=== PATIENT | female | born 1970 | race Two or more races ===

== ENCOUNTER 2018-01-10 21:55 | Emergency (ER) | payer MEDICAID ==
[~2018-01-10] VITALS: Ht 160 cm; Wt 77.1 kg
--- NOTE | 2018-01-10 22:10 | NUR ---
TO BED 9 AMBULATORY C/O L FLANK PAIN RADIATING TO LUQ X2 DAYS. PT AAOX4 NO ACUTE DISTRESS NOTED, RESP EVEN AND UNLABORED. PENDING ER MD LAWLER.
[2018-01-10] MEDS ORDERED: IV NS 0.9% 1,000 ML BAG IV ONE (22:30)
[2018-01-10] MEDS ORDERED: MORPHINE SULFATE INJ 2 MG/ML DISP.SYRIN IV ONE (22:30)
[2018-01-10] MEDS ORDERED: ONDANSETRON HCL/PF 4 MG/2 ML VIAL IVP ONE (22:30)
[2018-01-10] MEDS ORDERED: MORPHINE SULFATE INJ 4 MG/ML DISP.SYRIN ONE (22:32)
[2018-01-10] MEDS ORDERED: ONDANSETRON HCL/PF 4 MG/2 ML VIAL ONE (22:32)
[2018-01-10 22:46] LABS: BASOPHILS % (AUTO) 0.8 % (0.0-2.0); EOSINOPHILS % (AUTO) 4.1 % (0.0-6.0); HEMATOCRIT 38 % (33-45); HEMOGLOBIN 12.3 g/dL (11.5-14.8); LYMPHOCYTES # (AUTO) 1.9 /CMM (0.8-4.8); LYMPHOCYTES % (AUTO) 30.7 % (20.0-44.0); MEAN CORPUSCULAR HGB CONC 33 g/dl (31.0-36.0); MEAN CORPUSCULAR VOLUME 84 fL (82-100); MONOCYTES # (AUTO) 0.6 /CMM (0.1-1.30); MONOCYTES % (AUTO) 9.8 % (2.0-12.0); NEUTROPHILS # (AUTO) 3.4 /CMM (1.8-8.9); NEUTROPHILS % (AUTO) 54.6 % (43.0-81.0); PLATELET COUNT (AUTO) 288 /CMM (150-450); RDW COEFFICIENT OF VARIATION 15.8 (11.5-15.0); RED BLOOD CELL COUNT(AUTO) 4.52 MIL/uL (4.0-5.2); WHITE BLOOD COUNT (AUTO) 6.3 K/uL (4.3-11.0)
--- NOTE | 2018-01-10 22:46 | NUR ---
KEERTHI AT [facility] TO MEDICATE PT.
[2018-01-10 23:04] LABS: APPEARANCE,URINE SL CLOUDY (CLEAR); BILIRUBIN,URINE NEGATIVE (NEGATIVE); BLOOD, URINE NEGATIVE Ery/uL (NEGATIVE); COLOR,URINE YELLOW (YELLOW); KETONES,URINE TRACE (NEGATIVE); LEUKOCYTE ESTERASE ,URINE NEGATIVE (NEGATIVE); NITRITE, URINE NEGATIVE (NEGATIVE); PH,URINE 5.5 (5.0-8.0); PROTEIN,URINE NEGATIVE (NEGATIVE); UGLUCOSE NEGATIVE (NEGATIVE); UROBILINOGEN,URINE 0.2 EU/dL (0.2)
[2018-01-10 23:06] LABS: CALCIUM, SERUM 8.8 mg/dL (8.5-10.1); CREATININE 0.7 mg/dL (0.6-1.3); POTASSIUM 3.8 mmol/L (3.5-5.1)
[2018-01-10 23:07] LABS: ALBUMIN 3.7 g/dL (3.4-5.0); BILIRUBIN,DIRECT 0.1 mg/dL (0.0-0.2); BILIRUBIN,TOTAL 0.3 mg/dL (0.2-1.0); TOTAL PROTEIN, SERUM 7.6 g/dL (6.4-8.2)
[2018-01-10 23:13] LABS: BACTERIA,URINE Moderate /HPF (None Seen); MUCUS,URINE Many /LPF (None Seen); RBC,URINE 0-2 /HPF (0-2); SQUAMOUS EPITHELIAL CELL,UR Moderate /HPF (None Seen)
[2018-01-11] MEDS ORDERED: CT SWABBABLE VALVE TRANS SET 1 EA INFUS.SET MC ONE (00:05)
[2018-01-11] MEDS ORDERED: IV NS 0.9% 500 ML IV ONE (00:05)
[2018-01-11] MEDS ORDERED: IOHEXOL-350 100 ML VIAL IV ONE (00:05)
--- NOTE | 2018-01-11 00:47 | NUR ---
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
--- NOTE | 2018-01-11 01:24 | NUR ---
IV removed. Catheter intact and site benign. Pressure and 4x4 applied to site. No bleeding noted.Patient discharged to home in stable condition. Written and verbal after care instructions given. Patient verbalizes understanding of instruction AND RX. PT AMBULATED OUT WITH A STEADY GAIT. VSS. NAD NOTED.
[2018-01-11 01:26] VITALS: BP 117/78
== END 2018-01-11 01:27 | disposition home or self-care (01) ==
LOC: ER 21:55
DX: R10.12 Left upper quadrant pain (principal); M79.1 Myalgia; Z98.890 Other specified postprocedural states
CPT/HCPCS: 36415; 71275; 74176; 80048; 80076; 81001; 85025; 85378; 87086; 93005; 96361; 96374; 96375; 99285; A4606; J2270; J2405; J7030; J7040; Q9967; Z7610; 81000-TC

== ENCOUNTER 2018-03-31 02:15 | Emergency (ER) | payer MEDICAID ==
[~2018-03-31] VITALS: Ht 165.1 cm; Wt 72.6 kg
--- NOTE | 2018-03-31 02:15 | NUR ---
"HEADACHE/RT SIDE NECK PAIN/LT ARM NUMBNESS X2 HOURS"; DENIES TAKING MEDS. VSS NO ACUTE DISTRESS AT THIS TIME. FAMILY AT BEDSIDE TO TRANSLATE. PT IS ALERT AND ORIENTED X3 ACCORDING TO TRANSLATION. WILL CONTINUE TO MONITOR FOR ANY CHANGES DURING THE SHIFT.
--- NOTE | 2018-03-31 02:16 | NUR ---
ER MD ARAIZA AT BEDSIDE
[2018-03-31] MEDS ORDERED: ONDANSETRON 4 MG TAB.RAPDIS SL ONE (03:30)
[2018-03-31] MEDS ORDERED: oxyCODONE/APAP (5/325 MG) 1 UDTAB TABLET PO ONE (03:30)
[2018-03-31] MEDS ORDERED: oxyCODONE/APAP (5/325 MG) 1 UDTAB TABLET ONE (03:33)
[2018-03-31] MEDS ORDERED: ONDANSETRON 4 MG TAB.RAPDIS ONE (03:34)
[2018-03-31 03:47] LABS: BASOPHILS % (AUTO) 0.8 % (0.0-2.0); EOSINOPHILS % (AUTO) 4.5 % (0.0-6.0); HEMATOCRIT 39 % (33-45); HEMOGLOBIN 12.4 g/dL (11.5-14.8); LYMPHOCYTES # (AUTO) 2.2 /CMM (0.8-4.8); LYMPHOCYTES % (AUTO) 38.2 % (20.0-44.0); MEAN CORPUSCULAR HEMOGLOBIN 27 PG (26.0-33.0); MEAN CORPUSCULAR HGB CONC 32 g/dl (31.0-36.0); MEAN CORPUSCULAR VOLUME 84 fL (82-100); MONOCYTES # (AUTO) 0.5 /CMM (0.1-1.30); MONOCYTES % (AUTO) 9.3 % (2.0-12.0); NEUTROPHILS # (AUTO) 2.7 /CMM (1.8-8.9); NEUTROPHILS % (AUTO) 47.2 % (43.0-81.0); PLATELET COUNT (AUTO) 287 /CMM (150-450); RED BLOOD CELL COUNT(AUTO) 4.62 MIL/uL (4.0-5.2); WHITE BLOOD COUNT (AUTO) 5.8 K/uL (4.3-11.0)
[2018-03-31 04:00] LABS: ALANINE AMINOTRANSFERASE 22 U/L (12-78); ALBUMIN 3.8 g/dL (3.4-5.0); ALKALINE PHOSPHATASE 47 U/L (46-116); ASPARTATE AMINOTRANSFERASE 20 U/L (15-37); BILIRUBIN,DIRECT 0.1 mg/dL (0.0-0.2); BILIRUBIN,TOTAL 0.4 mg/dL (0.2-1.0); CALCIUM, SERUM 8.2 mg/dL (8.5-10.1); CARBON DIOXIDE 31 mmol/L (21-32); CHLORIDE 104 mmol/L (98-107); CREATININE 0.6 mg/dL (0.6-1.3); GLUCOSE 104 mg/dL (74-106); SODIUM SERUM 141 mmol/L (136-145); TOTAL PROTEIN, SERUM 7.5 g/dL (6.4-8.2); UREA NITROGEN, BLOOD 7 mg/dL (7-18)
[2018-03-31 04:02] LABS: TROPONIN I < 0.017 ng/mL (0.00-0.056)
--- NOTE | 2018-03-31 04:03 | NUR ---
PT OFF TO CT/RADIOLOGY
--- NOTE | 2018-03-31 04:15 | NUR ---
PT BACK FROM CT
[2018-03-31] MEDS ORDERED: ASPIRIN 81 MG TAB.CHEW ONE (05:22)
[2018-03-31] MEDS ORDERED: ASPIRIN 81 MG TAB.CHEW PO ONE (05:30)
--- NOTE | 2018-03-31 05:43 | NUR ---
PATIENT HAS LEFT SIGNING AMA AFTER SPEAKING WITH MD ARAIZA AND REFUSING TO STAY. RISKS WERE EXPLAINED AND UNDERSTOOD.
[2018-03-31 05:44] VITALS: BP 134/78
== END 2018-03-31 05:44 | disposition left against medical advice (07) ==
LOC: ER 02:20
DX: G45.9 Transient cerebral ischemic attack, unspecified (principal); R51 Headache; M54.2 Cervicalgia; Z98.890 Other specified postprocedural states
CPT/HCPCS: 36415; 70450; 71045; 72125; 80048; 80076; 84484; 85025; 85730; 93005; 99285; A4606; Q0162; Z7610

== ENCOUNTER 2019-11-24 10:44 | Emergency (ER) | payer OTHER ==
[~2019-11-24] VITALS: Ht 167.6 cm; Wt 68.0 kg
--- NOTE | 2019-11-24 11:03 | NUR ---
DR CHACKO AT BEDSIDE FOR EVAL.
--- NOTE | 2019-11-24 11:16 | NUR ---
IV LINE STARTED BLOOD DRAWN AND SENT TO LAB.
[2019-11-24 11:23] LABS: BASOPHILS % (AUTO) 0.8 % (0.0-2.0); EOSINOPHILS % (AUTO) 4.3 % (0.0-6.0); HEMATOCRIT 34 % (33-45); HEMOGLOBIN 11.4 g/dL (11.5-14.8); LYMPHOCYTES # (AUTO) 1.7 /CMM (0.8-4.8); LYMPHOCYTES % (AUTO) 26.9 % (20.0-44.0); MEAN CORPUSCULAR HGB CONC 34 g/dl (31.0-36.0); MEAN CORPUSCULAR VOLUME 79 fL (82-100); MONOCYTES # (AUTO) 0.5 /CMM (0.1-1.30); MONOCYTES % (AUTO) 8.6 % (2.0-12.0); NEUTROPHILS # (AUTO) 3.7 /CMM (1.8-8.9); NEUTROPHILS % (AUTO) 59.4 % (43.0-81.0); PLATELET COUNT (AUTO) 230 /CMM (150-450); RED BLOOD CELL COUNT(AUTO) 4.29 MIL/uL (4.0-5.2); WHITE BLOOD COUNT (AUTO) 6.2 K/uL (4.3-11.0)
[2019-11-24 11:30] LABS: CALCIUM, SERUM 8.6 mg/dL (8.5-10.1); CARBON DIOXIDE 23 mmol/L (21-32); CHLORIDE 105 mmol/L (98-107); CREATININE 0.7 mg/dL (0.6-1.3); GLUCOSE 98 mg/dL (74-106); POTASSIUM 3.8 mmol/L (3.5-5.1); SODIUM SERUM 139 mmol/L (136-145); UREA NITROGEN, BLOOD 11 mg/dL (7-18)
[2019-11-24 11:44] LABS: ALANINE AMINOTRANSFERASE 23 U/L (12-78); ALBUMIN 3.6 g/dL (3.4-5.0); ALKALINE PHOSPHATASE 45 U/L (46-116); ASPARTATE AMINOTRANSFERASE 21 U/L (15-37); BILIRUBIN,DIRECT 0.1 mg/dL (0.0-0.2); BILIRUBIN,TOTAL 0.3 mg/dL (0.2-1.0); TOTAL PROTEIN, SERUM 7.2 g/dL (6.4-8.2)
[2019-11-24] MEDS ORDERED: IOHEXOL-350 100 ML VIAL IV ONE (12:35)
[2019-11-24] MEDS ORDERED: CT SWABBABLE VALVE TRANS SET 1 EA INFUS.SET MC ONE (12:35)
[2019-11-24] MEDS ORDERED: IV NS 0.9% 500 ML IV ONE (12:35)
[2019-11-24 13:52] VITALS: BP 112/74
--- NOTE | 2019-11-24 13:52 | NUR ---
Patient discharged to home in stable condition. Written and verbal after care instructions given. Patient verbalizes understanding of instruction.IV removed. Catheter intact and site benign. Pressure and 4x4 applied to site. No bleeding noted.
== END 2019-11-24 13:53 | disposition home or self-care (01) ==
LOC: ER 10:51
DX: R07.89 Other chest pain (principal); Z98.890 Other specified postprocedural states
CPT/HCPCS: 36415; 71045; 71275; 80048; 80076; 84484; 84703; 85025; 93005; 99285; J7040; Q9967

== ENCOUNTER 2020-03-17 21:08 | Emergency (ER) | payer OTHER ==
[~2020-03-17] VITALS: Ht 165.1 cm; Wt 54.4 kg
[2020-03-17 21:57] VITALS: BP 115/70
[2020-03-17] MEDS ORDERED: FLUORESCEIN SODIUM OPHTH 1 EA STRIP ONE (22:13)
--- NOTE | 2020-03-17 22:14 | NUR ---
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
[2020-03-17] MEDS ORDERED: FLUORESCEIN SODIUM OPHTH 1 EA STRIP OP ONE (22:30)
[2020-03-17] MEDS ORDERED: TETRACAINE HCL 0.5% OPHTALMIC 15 ML BOTTLE OP ONE (22:30)
== END 2020-03-17 22:32 | disposition home or self-care (01) ==
LOC: ER 21:09
DX: H10.9 Unspecified conjunctivitis (principal); Z98.890 Other specified postprocedural states

== ENCOUNTER 2021-01-28 10:44 | Emergency (ER) | payer OTHER ==
[~2021-01-28] VITALS: Ht 167.6 cm; Wt 73.9 kg
[2021-01-28] MEDS ORDERED: PROCHLORPERAZINE EDISYLATE 10 MG/2 ML VIAL IM/IV STA (11:06)
[2021-01-28] MEDS ORDERED: KETOROLAC TROMETHAMINE 15 MG/ML VIAL ONE (11:17)
[2021-01-28] MEDS ORDERED: diphenhydrAMINE HCL 50 MG/ML VIAL ONE (11:17)
[2021-01-28] MEDS ORDERED: ACETAMINOPHEN 325 MG TABLET ONE (11:17)
[2021-01-28] MEDS ORDERED: PROCHLORPERAZINE EDISYLATE 10 MG/2 ML VIAL ONE (11:17)
[2021-01-28] MEDS ORDERED: ACETAMINOPHEN 325 MG TABLET PO ONE (11:30)
[2021-01-28] MEDS ORDERED: IV NS 0.9% 1,000 ML BAG IV ONE (11:30)
[2021-01-28] MEDS ORDERED: KETOROLAC TROMETHAMINE INJ 30 MG/ML VIAL IV ONE (11:30)
[2021-01-28] MEDS: diphenhydrAMINE HCL 50 MG/ML VIAL IV ONE (11:36)
--- NOTE | 2021-01-28 11:44 | NUR ---
BIBS FROM HOME TO ER BED 7. AAOX4. NOT IN RESP DISTRESS. AMBULATORY. CAME IN FOR HEADACHE, GEN BODYACHE AND VERBALIZATION THAT SHE IS STRESSED.L PAIN IS RATED 5/10. PT IS AFEBRILE. WAST AT THE BEDSIDE FOR EVAL. ORDERS RECEIVED, NOTED AND CARRIED OUT. IV LINE ESTABLSIHED ON R HAND 2OG. ACCUCHECK DONE. MEDICATED ORDERED.
--- NOTE | 2021-01-28 12:54 | NUR ---
Patient discharged to home in stable condition. Written and verbal after care instructions given. Patient verbalizes understanding of instruction.IV removed. Catheter intact and site benign. Pressure and 4x4 applied to site. No bleeding noted. Pt ambulatory with a steady gait
[2021-01-28 12:55] VITALS: BP 118/73
== END 2021-01-28 12:56 | disposition home or self-care (01) ==
LOC: ER 11:12
DX: R51.9 Headache, unspecified (principal); F43.9 Reaction to severe stress, unspecified; Z98.890 Other specified postprocedural states
CPT/HCPCS: 82962; 84703; 96361; 96374; 96375; 99284; J0780; J1200; J1885; J7030

== ENCOUNTER 2021-07-07 11:47 | Emergency (ER) | payer OTHER ==
[~2021-07-07] VITALS: Ht 162.6 cm; Wt 71.2 kg
[2021-07-07 11:59] VITALS: BP 119/68
--- NOTE | 2021-07-07 12:02 | NUR ---
DR LEE AT BEDSIDE
[2021-07-07] MEDS ORDERED: AMOX250C PO (12:06)
--- NOTE | 2021-07-07 12:09 | NUR ---
RAPID STREP SWAB DONE AND SENT
--- NOTE | 2021-07-07 12:11 | NUR ---
Patient discharged to home in stable condition. Written and verbal after care instructions given. Patient verbalizes understanding of instruction.
== END 2021-07-07 12:11 | disposition home or self-care (01) ==
LOC: ER 11:53
DX: J02.9 Acute pharyngitis, unspecified (principal); Z98.890 Other specified postprocedural states
CPT/HCPCS: 86403-TC; 87070-TC

== ENCOUNTER 2022-06-20 15:46 | Emergency (ER) | payer OTHER ==
[~2022-06-20] VITALS: Ht 167.6 cm; Wt 81.6 kg
[~2022-06-20 15:46] MED LIST: AMOX250C PO
[2022-06-20 18:56] VITALS: BP 130/74
--- NOTE | 2022-06-20 18:56 | NUR ---
Patient discharged to home in stable condition. Written and verbal after care instructions given. Patient verbalizes understanding of instruction.
== END 2022-06-20 18:57 | disposition home or self-care (01) ==
LOC: ER 15:47
DX: B34.9 Viral infection, unspecified (principal); Z79.899 Other long term (current) drug therapy

== ENCOUNTER 2024-05-08 15:31 | Emergency (ER) | payer MEDICAID, OTHER ==
[~2024-05-08] VITALS: Ht 167.6 cm; Wt 81.6 kg
[2024-05-08 17:14] LABS: APPEARANCE,URINE Cloudy (CLEAR); BILIRUBIN,URINE Negative (NEGATIVE); BLOOD, URINE Negative Ery/uL (NEGATIVE); COLOR,URINE YELLOW (YELLOW); KETONES,URINE Trace mg/dL (NEGATIVE); LEUKOCYTE ESTERASE ,URINE Trace (NEGATIVE); NITRITE, URINE Negative (NEGATIVE); PH,URINE 5.5 (5.0-8.0); PROTEIN,URINE Negative (NEGATIVE); UGLUCOSE Negative (NEGATIVE); UROBILINOGEN,URINE 0.2 EU/dL (0.2)
[2024-05-08] MEDS ORDERED: IV NS 0.9% 250 ML IV ONE (17:18)
[2024-05-08] MEDS ORDERED: IOHEXOL-300 100 ML VIAL IV ONE (17:18)
[2024-05-08 17:19] LABS: BASOPHILS % (AUTO) 0.5 % (0.0-2.0); EOSINOPHILS # (AUTO) 0.2 K/uL (0.0-0.7); EOSINOPHILS % (AUTO) 2.3 % (0.0-6.0); HEMATOCRIT 35 % (33-45); HEMOGLOBIN 11.5 g/dL (11.5-14.8); LYMPHOCYTES # (AUTO) 2.1 K/uL (0.8-4.8); LYMPHOCYTES % (AUTO) 32.7 % (20.0-44.0); MEAN CORPUSCULAR HEMOGLOBIN 26 PG (26.0-33.0); MEAN CORPUSCULAR HGB CONC 33 g/dl (31.0-36.0); MEAN CORPUSCULAR VOLUME 77 fL (82-100); MONOCYTES # (AUTO) 0.5 K/uL (0.1-1.30); MONOCYTES % (AUTO) 8.5 % (2.0-12.0); NEUTROPHILS # (AUTO) 3.6 K/uL (1.8-8.9); PLATELET COUNT (AUTO) 287 K/uL (150-450); RED BLOOD CELL COUNT(AUTO) 4.49 MIL/uL (4.0-5.2); RED CELL DISTRIBUTION WIDTH 17.6 % (11.5-15.0); WHITE BLOOD COUNT (AUTO) 6.4 K/uL (4.3-11.0)
[2024-05-08 17:32] LABS: ALBUMIN 3.8 g/dL (3.4-5.0); BILIRUBIN,TOTAL 0.2 mg/dL (0.2-1.0); CALCIUM, SERUM 8.7 mg/dL (8.5-10.1); CREATININE 0.6 mg/dL (0.6-1.3); POTASSIUM 3.7 mmol/L (3.5-5.1); TOTAL PROTEIN, SERUM 7.4 g/dL (6.4-8.2)
[2024-05-08 19:14] LABS: ADD URINE CULTURE NO; BACTERIA,URINE 1+ /HPF (None Seen); MUCUS,URINE Moderate /LPF (None Seen); RBC,URINE 0-2 /HPF (0-2)
[2024-05-08 19:15] LABS: CALCIUM OXALATE CRYSTALS,UR Many /HPF (None Seen)
[2024-05-08] MEDS ORDERED: PRED50TA PO (19:44)
[2024-05-08] MEDS ORDERED: LOPE2CAP40 PO (19:44)
[2024-05-08] MEDS ORDERED: HYDR30CR99 RC (19:44)
[2024-05-08 19:51] VITALS: BP 115/79; TEMP 98; O2SAT 99
== END 2024-05-08 19:51 | disposition home or self-care (01) ==
LOC: ER 15:37
DX: K52.9 Noninfective gastroenteritis and colitis, unspecified (principal); K64.9 Unspecified hemorrhoids; Z87.19 Personal history of other diseases of the digestive system
CPT/HCPCS: 99285; 74177; 85025; 80048; 83690; 80076; 81001; 36415; J7050; Q9967

== ENCOUNTER 2025-03-08 12:59 | Emergency (ER) | payer MEDICAID, OTHER ==
[~2025-03-08] VITALS: Ht 162.6 cm; Wt 77.1 kg
[~2025-03-08 12:59] MED LIST changes: +HYDR30CR99 RC; +LOPE2CAP40 PO; +PRED50TA PO
[2025-03-08 14:12] LABS: PLATELET COUNT (AUTO) 297 K/uL (150-450); RED BLOOD CELL COUNT(AUTO) 4.13 MIL/uL (4.0-5.2); RED CELL DISTRIBUTION WIDTH 17.0 % (11.5-15.0); WHITE BLOOD COUNT (AUTO) 7.3 K/uL (4.3-11.0)
[2025-03-08 14:20] LABS: CALCIUM, SERUM 8.6 mg/dL (8.5-10.1); CREATININE 0.5 mg/dL (0.6-1.3); SODIUM SERUM 140.0 mmol/L (136-145); UREA NITROGEN, BLOOD 9.0 mg/dL (7-18)
[2025-03-08 14:27] LABS: ASPARTATE AMINOTRANSFERASE 18.0 U/L (15-37); TOTAL PROTEIN, SERUM 6.9 g/dL (6.4-8.2)
[2025-03-08 14:30] LABS: INR 1.03 (0.91-1.10)
[2025-03-08] MEDS: FAMOTIDINE/PF INJ 20 MG/2 ML VIAL IV ONE (16:00)
[2025-03-08] MEDS: PANTOPRAZOLE 40 MG VIAL IV ONE (16:00)
[2025-03-08] MEDS: IV NS 0.9% 1,000 ML BAG IV ONE (16:00)
[2025-03-08] MEDS ORDERED: AMOX-430 PO (16:29)
[2025-03-08 16:36] LABS: APPEARANCE,URINE CLEAR (CLEAR); BLOOD, URINE NEGATIVE Ery/uL (NEGATIVE); LEUKOCYTE ESTERASE ,URINE NEGATIVE (NEGATIVE); NITRITE, URINE NEGATIVE (NEGATIVE); UGLUCOSE NEGATIVE (NEGATIVE)
[2025-03-08 17:38] VITALS: BP 119/61; TEMP 98.4; O2SAT 99
== END 2025-03-08 17:39 | disposition home or self-care (01) ==
LOC: ER 13:06
DX: K52.9 Noninfective gastroenteritis and colitis, unspecified (principal); K64.9 Unspecified hemorrhoids; K21.9 Gastro-esophageal reflux disease without esophagitis; Z79.52 Long term (current) use of systemic steroids; Z87.19 Personal history of other diseases of the digestive system; Z98.890 Other specified postprocedural states; Z79.899 Other long term (current) drug therapy
CPT/HCPCS: 99285; 74176; 96374; 71045; 96361; 96375; 93005; 85025; 80048; 83690; 80076; 81003; 36415; 85730; J1308; J7030; J2470

== ENCOUNTER 2025-05-15 12:16 | Emergency (ER) | payer OTHER ==
[~2025-05-15] VITALS: Ht 167.6 cm; Wt 78.9 kg
[~2025-05-15 12:16] MED LIST changes: +AMOX-430 PO
[2025-05-15] MEDS ORDERED: GABA-532 PO (13:29)
[2025-05-15] MEDS ORDERED: IBUP-1955 PO (13:29)
[2025-05-15] MEDS ORDERED: KETOROLAC TROMETHAMINE INJ 30 MG/ML VIAL ONE (13:43)
[2025-05-15] MEDS: KETOROLAC TROMETHAMINE INJ 30 MG/ML VIAL IM ONE (13:46)
[2025-05-15 14:00] VITALS: BP 128/72; TEMP 98.5; O2SAT 99
== END 2025-05-15 14:01 | disposition home or self-care (01) ==
LOC: ER 12:21
DX: M54.50 Low back pain, unspecified (principal); M79.605 Pain in left leg; Z79.52 Long term (current) use of systemic steroids
CPT/HCPCS: 99283; 96372; J1885